=== PATIENT | female | born 1975 | race American Indian/Alaskan Native ===

== ENCOUNTER 2021-10-06 06:13 | Inpatient (IN) | payer OTHER ==
[2021-09-30 12:30] LABS: Basophils # (Auto) 0.1 K/mm3 (0.0-0.1); Basophils % (Auto) 1.3 % (0.0-1.8); Eosinophils # (Auto) 0.1 K/mm3 (0.0-0.4); Eosinophils % (Auto) 1.3 % (0.0-4.3); Lymphocytes % (Auto) 18.8 % (13.4-35.0); Mean Corpuscular HGB Conc 29 % (30-34); Monocytes # (Auto) 0.5 K/mm3 (0.0-0.8); Monocytes % (Auto) 9.3 % (0.0-7.3); Platelet Count 310 K/mm3 (140-440)
[2021-09-30 12:32] LABS: Hematocrit 27.6 % (30.3-42.9); Hemoglobin 7.9 gm/dl (10.1-14.3); Mean Corpuscular Volume 60 fl (79-97); Red Cell Distribution Width 21.2 % (13.2-15.2)
[~2021-10-06 06:13] MED LIST: ACETAMINOPHEN 500 MG TAB PO SCH; CELECOXIB 200 MG CAP PO NR; GABAPENTIN 300 MG CAP PO NR; LACTATED RINGERS 1,000 ML IV SCH; MIDAZOLAM 2 MG/2 ML INJ IV NR; SCOPOLAMINE TRANSDERMAL PATCH 72 HR TD NR; fentaNYL 100 MCG/2 ML INJ IV PRN
[2021-10-06] MEDS ORDERED: BACTERIOSTATIC SODIUM CHLORIDE 0.9% 30 ML VIAL INFILTRATI ONE (06:28)
[2021-10-06] MEDS ORDERED: ONDANSETRON 4 MG/2 ML INJ ONE (07:38)
[2021-10-06] MEDS ORDERED: LIDOCAINE MPF (2%) 20 MG/1 ML VIAL 5 ML ONE (07:38)
[2021-10-06] MEDS ORDERED: ROCURONIUM 50 MG/5 ML INJ IV ONE ×4 (07:38→13:40)
[2021-10-06] MEDS ORDERED: HYDROmorphone 1 MG/1 ML INJ ONE (07:38)
[2021-10-06] MEDS ORDERED: propofoL 200 MG/20 ML VIAL IV ONE (07:39)
--- NOTE | 2021-10-06 07:41 | Short Stay Summary ---
Short Stay Documentation Date of service: 10/06/21 Narrative H&P: 46-year-old -0-0-2 with a history of symptomatic uterine fibroids. The patient had a pelvic ultrasound that demonstrated a dominant markedly enlarged leiomyoma. The patient reports a history of pelvic pressure and pain and abnormal bleeding. She is elected to undergo definitive surgical management. - History Principal diagnosis: Leiomyoma Past Medical History: No medical history Past Surgical History: Other (Tubal ligation) Social history: - Allergies and Medications Current Medications: Allergies No Known Allergies Allergy (Unverified 09/29/21 11:42) Home Medications Medication Instructions Recorded Confirmed Last Taken Type No Known Home Medications [No 09/29/21 09/29/21 Unknown History Reported Home Medications] Active Medications Acetaminophen (Acetaminophen 500 Mg Tab) 1,000 mg PO PREOP MARA Stop: 10/06/21 20:00 Celecoxib (Celecoxib 200 Mg Cap) 200 mg PO PREOP NR Stop: 10/06/21 20:00 Fentanyl (Fentanyl 100 Mcg/2 Ml Inj) 100 mcg IV ONCE PRN PRN Reason: sedation for nerve block Stop: 10/06/21 20:00 Gabapentin (Gabapentin 300 Mg Cap) 300 mg PO PREOP NR Stop: 10/06/21 20:00 Lactated Ringer's (Lactated Ringers) 1,000 mls @ 100 mls/hr IV DIRECT MARA Stop: 10/06/21 23:59 Midazolam HCl (Midazolam 2 Mg/2 Ml Inj) 2 mg IV PREOP NR Stop: 10/06/21 20:00 Scopolamine (Scopolamine Transdermal Patch 72 Hr) 1 each TD PREOP NR Stop: 10/06/21 20:00 - Physical exam General appearance: no acute distress Integumentary: no rash HEENT: Atraumatic Lungs: Clear to auscultation Breasts: deferred Heart: Regular rate Gastrointestinal: normal Female Genitourinary: deferred Rectal Exam: deferred Extremities: no ischemia - Brief post op/procedure progress note Date of procedure: 10/06/21 Pre-op diagnosis: Symptomatic uterine fibroid Post-op diagnosis: same Procedure: Robotic hysterectomy Conversion to exploratory laparotomy with completion of the hysterectomy Bilateral salpingectomy Anesthesia: GETA Surgeon: THANIA GANT Estimated blood loss: other (2000 mL) Pathology: list (Uterus, cervix, leiomyomas, bilateral tubes) Specimen disposition: to lab Condition: stable - Hospital course Hospital course: The patient was admitted the day of surgery to undergo a robotic assisted hysterectomy. Her intraoperative course was complicated by intra operative hemorrhage that led to conversion to an exploratory laparotomy with transfusion of packed red blood cells during the surgery. Postoperatively the patient did well without any significant complications. - Disposition Condition at discharge: Good Disposition: 01 HOME / SELF CARE / HOMELESS Short Stay Discharge Plan Activity: other (Pelvic rest for 6 weeks) Diet: regular Additional Instructions: Pelvic rest for 6 weeks No tub baths for 4 weeks patient may shower Patient may drive in 2 weeks Remove Steri-Strips in 1 week Postoperative follow-up in 4 weeks Prescriptions: Docusate Sodium [Colace] 100 mg PO BID PRN #30 capsule PRN Reason: Constipation Ferrous Sulfate [Feosol 325 MG tab] 325 mg PO BID #60 tablet
[2021-10-06] MEDS ORDERED: dexAMETHasone 4 MG/ML VIAL ONE (07:46)
[2021-10-06] MEDS ORDERED: BUPIVACAINE/PF (0.25%) 2.5 MG/ML 30 ML VIAL INFILTRATI ONE (07:46)
[2021-10-06] MEDS ORDERED: NEOMY 40 MG/POLYMYXIN B 200,000 UNITS/ML (GU) AMPULE IR ONE (07:50)
[2021-10-06] MEDS ORDERED: ONDANSETRON 4 MG/2 ML INJ IV PRN ×2 (07:51→15:03)
[2021-10-06] MEDS ORDERED: oxyCODONE /ACETAMINOPHEN 5-325MG TAB PO PRN ×2 (07:51→15:03)
[2021-10-06] MEDS ORDERED: HYDROmorphone 1 MG/1 ML INJ IV PRN (07:51)
[2021-10-06] MEDS ORDERED: BUPIVACAINE/PF (0.5%) 5 MG/1 ML 30 ML VIAL INFILTRATI ONE (07:51)
--- NOTE | 2021-10-06 07:51 | Anesthesia Consultation ---
Anesthesia Consult and Med Hx Date of service: 10/06/21 - Airway Anesthetic Teeth Evaluation: Good ROM Head & Neck: Adequate Mental/Hyoid Distance: Adequate Mallampati Class: Class I Intubation Access Assessment: Good - Pre-Operative Health Status ASA Pre-Surgery Classification: ASA2 Proposed Anesthetic Plan: General - Pulmonary Hx Smoking: No Hx Respiratory Symptoms: No Hx Sleep Apnea: No (snores) - Cardiovascular System Hx Hypertension: No Hx Heart Attack/AMI: No - Central Nervous System CVA: No - Endocrine Hx Renal Disease: No Hx Liver Disease: No Hx Insulin Dependent Diabetes: No Hx Non-Insulin Dependent Diabetes: No Hx Thyroid Disease: No - Hematic Hx Anemia: Yes (Hb 7.9; will transfuse perioperatively) - Other Systems Hx Obesity: Yes (BMI 30) - Additional Comments Anesthesia Medical History Comments: No hx anesthetic complications.
--- NOTE | 2021-10-06 07:51 | Anesthesia Day of Surgery ---
Anesthesia Day of Surgery - Day of Surgery Patient Examined: Yes Patient H&P Reviewed: Yes Patient is NPO: Yes
[2021-10-06] MEDS ORDERED: cloNIDine/PF 1,000 MCG/10 ML VIAL EP ONE (07:56)
[2021-10-06] MEDS ORDERED: ceFAZolin/Water 2 GM/20 ML 2 GM/20 ML SYRINGE IV NR (08:00)
[2021-10-06] MEDS ORDERED: SODIUM CHLORIDE 0.9% 500 ML 0 ML ONE (10:19)
[2021-10-06] MEDS ORDERED: SODIUM CHLORIDE 0.9% 500 ML 500 ML ONE (10:34)
[2021-10-06] MEDS ORDERED: VASOPRESSIN 20 UNIT/1 ML INJ ONE ×2 (11:59→13:46)
[2021-10-06] MEDS ORDERED: SODIUM CHLORIDE 0.9% 100 ML ONE ×3 (12:00→15:05)
[2021-10-06] MEDS ORDERED: dexAMETHasone 20 MG/5 ML VIAL ONE (12:54)
[2021-10-06] MEDS ORDERED: SODIUM CHLORIDE 0.9% 500 ML 500 ML IV SCH (13:00)
[2021-10-06] MEDS ORDERED: SODIUM CHLORIDE 0.9% IRR 1,500 ML BOTTLE IR ONE (13:00)
[2021-10-06] MEDS ORDERED: SODIUM CHLORIDE 0.9% IRRIG SOLN 2000 ML IR ONE (13:00)
[2021-10-06] MEDS ORDERED: SODIUM CHLORIDE 0.9% 100 ML IVPB IV ONE (13:01)
[2021-10-06] MEDS ORDERED: VASOPRESSIN 20 UNIT/1 ML INJ IV ONE (13:01)
[2021-10-06] MEDS ORDERED: PHENYLEPHRINE/NS 1,000 MCG/10 ML SYRINGE (OR USE) IV ONE (13:03)
[2021-10-06] MEDS ORDERED: SODIUM CHLORIDE 0.9% 500 ML 500 ML IV ONE ×3 (13:19→13:47)
[2021-10-06] MEDS ORDERED: TRANEXAMIC ACID 1,000 MG/10 ML ONE (13:45)
[2021-10-06] MEDS ORDERED: ALBUMIN HUMAN 5% (12.5 GM/250 ML) INJ IV ONE (13:56)
[2021-10-06] MEDS ORDERED: ANTICOAGULANT SOD CITRATE SOLUTION MC ONE (14:00)
[2021-10-06] MEDS ORDERED: GLYCOPYRROLATE 0.4 MG/2 ML INJ ONE (14:11)
[2021-10-06] MEDS ORDERED: NEOSTIGMINE 10MG/10 ML INJ MDV ONE (14:11)
[2021-10-06] MEDS ORDERED: PHENYLEPHRINE 10 MG/1 ML INJ SDV ONE (14:47)
--- NOTE | 2021-10-06 15:02 | Operative Report ---
Operative Report Operative Report: Date of surgery: Default value Preoperative diagnoses: Default value Postoperative diagnoses: Default value Procedure: Robotic hysterectomy; bilateral salpingectomy; conversion to exploratory laparotomy with completion of the total abdominal hysterectomy; right ovarian cystectomy Surgeon: Shadia Siddiqui M.D. Conveyor Tender: Pedro Jauregui Anesthesia: Gen. endotracheal anesthesia Estimated blood loss: 2000 mL Packed red blood cells: 4 units FFP: 2 units Albumin: 500 mL IV fluids: 1700 mL Urine output: 800 mL Pathology: Uterus, cervix, leiomyomas, bilateral tubes; right ovarian cyst Indication: 46-year-old -0-0-2 with a history of symptomatic uterine fibroids. The patient elected to undergo definitive surgical management. Procedure: The patient was taken to the operating room and given general endotracheal anesthesia without complication after a time out was performed confirming the surgery and identity of the patient. She was prepped and draped in a normal sterile fashion. A bivalve speculum was placed in the patient's vagina and a single-tooth tenaculum placed on the anterior lip of the cervix. The uterus was sounded with the uterine sound. A stay suture with 0-vicryl was placed at 12 o'clock on the anterior cervix. A [employer] uterine manipulator was placed in the bivalve speculum was then removed. A warm laparotomy sponge was placed in the vagina. Attention was then turned to the patient's abdomen where a 12millimeter supra umbilical skin incision was then made. A Veress needle was placed and peritoneal entry was verified water-filled syringe. Insufflation of the peritoneal cavity was performed with CO2 gas. The 12 mm trocar was then placed under direct visualization. An additional 8 mm robotic trocar was placed on the patient's left and right lateral side just opposite of the supraumbilical trocar. An additional 5 mm right lateral trocar was then placed as the accessory port. The supraumbilical 12 mm trocar site was closed with the Calin Bosch device and 0-vicryl suture. The patient was then placed in steep Trendelenburg. The da Mani robot was then engaged. A fenestrated forcep was placed in arm 2 and a vessel sealer was placed in arm 1. General survey revealed a markedly enlarged fibroid uterus with the appearance of a dominant fundal leiomyoma. Right hemorrhagic cyst. Normal left ovary. The surgeon then transferred to the surgical console. Secondary to the large size of the uterus the monopolar scissors were used to incise the fundus. With meticulous dissection the leiomyoma was excised from the corpus of the uterus. The uterus was noted to have a broad base with adherent to the sidewalls bilaterally. The mesosalpinx was then isolated on the right. The vessel sealer was used to coagulate the mesosalpinx which was then transected. The tube was transected from the ovary. The tubo-ovarian ligament was then coagulated and transected. The round ligament was then coagulated and transected also. Despite the removal of the fibroid the uterus continued to have significantly large size. the uterine vessels were then coagulated with the vessel sealer. The vessels were then transected . Attention was then turned to the patient's left side where the tubo-ovarian ligament and mesosalpinx were again isolated coagulated and transected. The vesical peritoneum was then entered from the left and joined in the midline. During the process of the case there was noted to be significant bleeding coming from the left uterine vessel complex. Multiple attempts were made to coagulate the vessels. Peritoneum was reflected off of the lower uterine segment. Uterine vessels were then coagulated and then transected. Secondary to the large amount of blood loss during the procedure the decision was made to convert to an exploratory laparotomy. There were multiple aberrant blood vessels that could not be adequately controlled with the vessel sealer and the fenestrated forcep. The [employer] robot was undocked. A Pfannenstiel skin incision was made down to layer the fascia which was nicked in the midline and extended laterally with the Bovie cautery. Superior aspect of the rectus fascia was grasped with Sara clamps x2 and the rectus muscle off sharply. This was performed in inferior fashion as well. The rectus muscle was midline and the peritoneum entered bluntly. A self-retaining retractor in the form of O'Saud-O'Villalba was placed. The bowel was packed with warm moist laparotomy sponges. The source of the bleeding was noted to be from the left uterine vessel complex. Straight Archana clamp was placed on the vessel and secured with 0 Vicryl suture. The uterus was then amputated from the cervix. In sequential fashion straight Archana clamps were used to isolate the cervix from the surrounding tissue. The tissue was excised with the scalpel and suture-ligated until hemostatic. Sharply curved Archana clamps were placed below the level of the cervix and the cervix was amputated from the vaginal cuff. The vaginal cuff was closed with Archana fixation stitches at the corners in interrupted [id number] stitches in the midline. The amputated corpus of the uterus was then removed once all sites were hemostatic. The isolated leiomyoma was also removed through the Pfannenstiel incision. Irrigation of the pelvis was performed. The self-retaining retractor and the warm laparotomy sponges were then removed. The peritoneum was closed with 3-0 Vicryl with interrupted [id number] stitches. The fascia was then closed with 0 Vicryl in a running fashion. The skin was reapproximated with 3-0 Monocryl. Then the trocars were removed. The skin was then reapproximated with 4-0 Monocryl. The tissue was sent to pathology which included the cervix, bilateral tubes, ovarian cyst, leiomyoma and uterus. The patient was then successfully extubated. She was then taken to the recovery room in stable condition. All sponge laps and needle counts were correct x2.
[2021-10-06] MEDS ORDERED: ACETAMINOPHEN 325 MG TAB PO PRN (15:03)
[2021-10-06] MEDS ORDERED: SODIUM CHLORIDE 0.9% 1000 ML 2,000 ML ONE (15:05)
[2021-10-06] MEDS ORDERED: D5W/LACTATED RINGERS 1,000 ML IV SCH (16:00)
[2021-10-06] MEDS: MORPHINE 4 MG/1 ML INJ IV PRN ×2 (18:29→21:47)
[2021-10-07] MEDS: MORPHINE 4 MG/1 ML INJ IV PRN (03:43)
[2021-10-07 05:17] LABS: Hemoglobin 7.3 gm/dl (10.1-14.3)
--- NOTE | 2021-10-07 08:07 | Progress Note ---
Assessment and Plan - Patient Problems (1) Leiomyoma Current Visit: Yes Status: Acute Plan to address problem: Patient is clinically stable will discharge home today. Subjective - Subjective Date of service: 10/07/21 Principal diagnosis: Leiomyoma Interval history: The patient is status post a robotic assisted hysterectomy that was converted to exploratory laparotomy and a total abdominal hysterectomy. The patient had a significant intrapartum hemorrhage and subsequently had to be transfused packed red blood cells and FFP. The patient reports feeling better today. She has been voiding spontaneously. She is tolerating clear diet without complication. Patient reports: appetite normal, voiding normally, pain well controlled Objective - Vital Signs Latest vital signs: Vital Signs Temp Pulse Pulse Resp BP BP Pulse Ox 10/07/21 04:40 98.6 F 84 18 102/57 94 10/07/21 04:13 18 10/07/21 03:43 18 10/07/21 00:17 97.8 F 80 18 125/60 100 10/06/21 22:17 18 10/06/21 22:00 80 18 99 10/06/21 21:47 18 10/06/21 20:07 97.7 F 89 16 116/68 99 10/06/21 17:17 98.8 F 81 16 102/56 100 10/06/21 17:09 100 10/06/21 16:08 97 F L 84 18 115/64 100 10/06/21 16:00 83 18 108/62 100 10/06/21 15:54 97 F L 83 18 108/60 100 10/06/21 15:45 97.2 F L 84 18 120/64 100 10/06/21 15:35 97.1 F L 81 12 108/59 100 10/06/21 15:30 81 16 108/59 100 10/06/21 15:25 75 16 103/58 100 10/06/21 15:20 79 16 101/55 100 10/06/21 15:17 97.8 F 115 H 16 115/58 100 10/06/21 11:31 97 F L 83 18 108/60 100 10/06/21 10:46 97.9 F 73 18 114/58 100 10/06/21 09:23 74 12 123/65 100 10/06/21 08:59 18 10/06/21 08:12 79 14 118/67 100 10/06/21 08:07 84 15 135/66 100 Intake and Output 10/06/21 10/07/21 10/07/21 22:59 06:59 14:59 Intake Total 1121 Output Total 1120 500 Balance 1 -500 Intake: IV 250 Oral 240 Blood Product 631 Fresh Frozen Plasma 311 Thawed Unit [id number] Fresh Frozen Plasma 320 Thawed Unit [id number] Output: Urine 1120 500 Void 200 500 Other: Total, Intake Amount 240 Total, Output Amount 200 300 Voiding Method Toilet # Voids 1 - Exam Incision: Present: dressed - Labs Labs: Abnormal lab results 10/06/21 10/07/21 Range/Units 06:30 04:42 Hgb 7.3 L (10.1-14.3) gm/dl Hct 23.0 L (30.3-42.9) % Crossmatch See Detail
[2021-10-07] MEDS: IBUPROFEN 800 MG TAB PO PRN ×2 (09:00→15:43)
--- NOTE | 2021-10-07 14:22 | Post Anesthesia Evaluation ---
- Post Anesthesia Evaluation Patient Participated: Yes Airway Patent: Yes Stable Respiratory Function: Yes Nausea/Vomiting: No (improved from immediate postop period) Temp > 96.8F: Yes Pain Manageable: Yes Adequeate Hydration: Yes Anesthesia Complications: No Block Receding Appropriately: Yes Patient on Ventilator: No
[2021-10-07 16:53] VITALS: BP 111/57
== END 2021-10-07 18:05 | disposition home or self-care (01) | DRG 743 ==
LOC: OR 06:13 → OB 15:03
PROVIDERS: ADMIT Obstetrics & Gynecology; ATTEND Obstetrics & Gynecology
PROC: 0UT94ZZ Resection of Uterus, Percutaneous Endoscopic Approach (ICD-10-PCS; principal; 2021-10-06)
PROC: 0UB74ZZ Excision of Bilateral Fallopian Tubes, Percutaneous Endoscopic Approach (ICD-10-PCS; 2021-10-06)
PROC: 0UB04ZZ Excision of Right Ovary, Percutaneous Endoscopic Approach (ICD-10-PCS; 2021-10-06)
PROC: 8E0W4CZ Robotic Assisted Procedure of Trunk Region, Percutaneous Endoscopic Approach (ICD-10-PCS; 2021-10-06)
DX: D25.9 Leiomyoma of uterus, unspecified (principal); D21.9 Benign neoplasm of connective and other soft tissue, unspecified; Z20.822 Contact with and (suspected) exposure to COVID-19
CPT/HCPCS: 36415; 36430; 64450; 84703; 85014; 85018; 85025; 86850; 86900; 86901; 86920; 88302; 88305; 88307; G0378; J1815; J3490; J7120; Q0162; J0690; J0735; J1100; J1170; J2250; J2270; J2370; J2405; J2704; J2710; J3010; J7030; J7040; P9016; P9017; P9045; U0003